=== PATIENT | male | born 1945 | race Caucasian/White ===

== ENCOUNTER 2017-03-23 03:34 | Emergency (ER) | payer BC, MEDICARE ==
[~2017-03-23 03:34] MED LIST: *UNABLE2; AMLODIPINE PO; ASAB PO; BLOOD PRESSURE MED PO; CO Q-10100 MG PO; CO Q-10200 MG PO; COLCH6 PO; COQ-1010 MG OR; COREG12 PO; COREG25 PO; CRESTOR PO; DIOV160 PO; DIOVAN PO; ENFORGE PO; FISH-EPA1000 MG PO; FLOMAX4 PO; INDO50 PO; NIACOR500 MG PO; NORV10 PO; NTG150 SL; PLAVIX PO; PROSTATE MED PO; TEKTUR150 PO; UNKNOWN MEDS; Z300 PO; ZOCOR20 PO; ZOCOR40 PO
== END 2017-03-23 05:00 | disposition home or self-care (01) ==
LOC: ER 03:34
DX: M25.522 Pain in left elbow (principal); E78.5 Hyperlipidemia, unspecified; I12.9 Hypertensive chronic kidney disease with stage 1 through stage 4 chronic kidney disease, or unspecified chronic kidney disease; N18.9 Chronic kidney disease, unspecified; K21.9 Gastro-esophageal reflux disease without esophagitis; Z98.890 Other specified postprocedural states; Z90.49 Acquired absence of other specified parts of digestive tract; Z95.1 Presence of aortocoronary bypass graft; Z88.2 Allergy status to sulfonamides; Z88.5 Allergy status to narcotic agent; Z88.8 Allergy status to other drugs, medicaments and biological substances; Z79.82 Long term (current) use of aspirin; Z79.899 Other long term (current) drug therapy
CPT/HCPCS: 96372; 99284; J1170; J1885